=== PATIENT | male | born 1945 | race Native Hawaiian/Other Pacific Islander ===

== ENCOUNTER 2016-08-07 08:23 | Day surgery (SDC) | payer MEDICARE, OTHER ==
[2016-07-17 09:40] VITALS: BMI 22.3
[2016-08-07] MEDS ORDERED: ceFAZolin IV 2 gm in Dextrose 1 GM/50 ML BAG IVPB ONE (08:37)
[2016-08-07] MEDS ORDERED: Bupivacaine/Epi 0.25%-1:200,000 10 ml PF inj IJ ONE (08:37)
[2016-08-07] MEDS ORDERED: Lidocaine 1% Inj (20ml) ONE (08:37)
[2016-08-07] MEDS ORDERED: Midazolam 2 MG/2 ML VIAL ONE (08:56)
[2016-08-07] MEDS ORDERED: Propofol 10 mg/ml Inj (20 ML) ONE (08:57)
[2016-08-07] MEDS ORDERED: Lactated Ringer's 1,000 ML IV ONE ×4 (09:30→12:50)
[2016-08-07] MEDS ORDERED: Rocuronium 10 mg/ml (5 ml) ONE (10:26)
[2016-08-07] MEDS ORDERED: Oxycodone/Acetaminophen 5/325 mg Tab PO PRN (12:09)
--- NOTE | 2016-08-07 12:09 | PCM.SURG1 ---
Surgeon's Initial Post Op Note - Surgeon's Notes Surgeon: [facility] [employer] And Control Specialist: Tricia PGY2Isai Type of Anesthesia: General Endo, Local Pre-Operative Diagnosis: Right inguinal hernia repair Operative Findings: Indirect R inguinal hernia repair Post-Operative Diagnosis: same Operation Performed: Robotic assisted EMELYN hernia repair w. mesh Specimen/Specimens Removed: none Estimated Blood Loss: EBL {In ML}: 10 Blood Products Given: N/A Drains Used: No Drains Post-Op Condition: Good Date of Surgery/Procedure: 08/07/16 Time of Surgery/Procedure: 12:09
[2016-08-07] MEDS ORDERED: HYDROmorphone 0.5 mg/0.5 ml ISec IVP PRN (12:10)
[2016-08-07] MEDS ORDERED: HYDROmorphone 0.5 mg/0.5 ml ISec ONE (12:20)
[2016-08-07] MEDS ORDERED: HYDROmorphone 1 mg/ml ISec IVP PRN (12:30)
--- NOTE | 2016-08-07 15:04 | OP ---
PROCEDURE DATE: 08/07/2016 PREOPERATIVE DIAGNOSIS: Right inguinal hernia. POSTOPERATIVE DIAGNOSIS: Right indirect inguinal hernia. PROCEDURE DONE: Robotic right inguinal hernia repair with mesh. SURGEON: Humphrey Vegas MD YARDAGE CONTROL OPERATOR FORMING: PEDRO Zhang. Tg was present from the beginning to the end of the procedure. H elped in the prepping and draping, placement of the port, docking and undocking of the robot, and emily sure of the wound. ANESTHESIA: General endotracheal tube anesthesia. ESTIMATED BLOOD LOSS: Around 20 mL. DRAINS: None. PATHOLOGY: None. COMPLICATIONS: None. INTRAOPERATIVE FINDINGS: The patient had a large right indirect inguinal hernia. INTRAOPERATIVE STEPS: This is a 71-year-old male who was diagnosed with a right inguinal hernia and patient was consented for the robotic right inguinal hernia repair with the mesh. Brought to the OR, placed supine on the operating table. After induction of the anesthesia, the Fernandez catheter was deep kavon and abdomen was prepped and draped in a usual sterile fashion. Infraumbilical transverse 1.5 cm incision was made and the fascia was incised, robotic camera port was placed. Another three 8 mm por ts were placed: 2 on the left side, 1 on the right flank side, and the robot was brought in. Camera arm and arm 1 and arm 2 were docked. The peritoneal dissection was done midline up to the pubic sym physis, laterally up to the lateral abdominal wall, and the peritoneal sac appeared to be deep and co mplete, and the whole sac was reduced back into the peritoneal cavity and hemostasis was achieved. A fter that, the right anatomical mesh was implanted. After proper implantation of the mesh, the perit oneum was sutured with 2-0 Vicryl V-Loc suture. The peritoneal dissection was done medially up to pu bic symphysis and space of Retzius, laterally up to the lateral abdominal wall, superiorly up to the inferior epigastric artery and inferiorly up to the peritoneal reflection. After proper closure of t he peritoneum, all the ports were taken out under vision. Pneumo was deflated. Umbilical port site was closed in 2 layers, the fascia with 0 Vicryl interrupted sutures and skin with a 4-0 Monocryl. D ry sterile dressing was applied. The patient tolerated the procedure well. Count of instruments and gauze was correct. There was no apparent complication. The patient was extubated in the OR, sent t o the postanesthesia care unit in stable condition. Humphrey Vegas MD cc: [id number] TT: 08/07/2016 15:03:28 mn
[2016-08-07 15:10] VITALS: O2SAT 100
[2016-08-07 15:18] VITALS: BP 140/82; PULSE 67; RESP 19; TEMP 98
== END 2016-08-07 14:10 | disposition home or self-care (01) ==
LOC: C.SDS 08:23
PROVIDERS: ATTEND Surgery Surgical Critical Care
DX: K40.90 Unilateral inguinal hernia, without obstruction or gangrene, not specified as recurrent (principal)
CPT/HCPCS: 36415; 49505; 86850; 86900; C1781; J0690; J1170; J2250; J2704; J3010; J7120; S2900

== ENCOUNTER 2017-03-12 10:58 | Day surgery (SDC) | payer MEDICARE, OTHER ==
[2017-02-18 08:07] VITALS: BMI 20.7
[2017-03-12] MEDS ORDERED: ceFAZolin IV 1 gm in Dextrose 0 GM/0 ML BAG IVPB ONE (13:36)
[2017-03-12] MEDS ORDERED: Bupivacaine-Epi 0.25%-1:200,000 PF Inj ONE (13:36)
[2017-03-12] MEDS ORDERED: Sodium Chloride 0.9% 20 ML IV ONE (13:36)
[2017-03-12] MEDS ORDERED: Lidocaine 1% Inj (20ml) ONE (13:37)
[2017-03-12] MEDS ORDERED: HEPARIN-NS 5,000 UNITS/500 ML 5,000 UNIT/500 ML BAG IV ONE (13:38)
[2017-03-12] MEDS ORDERED: ceFAZolin IV 2 gm in Dextrose 2 GM/50 ML BAG IVPB ONE (13:49)
[2017-03-12] MEDS ORDERED: Lactated Ringer's 1,000 ML IV ONE (13:55)
[2017-03-12] MEDS ORDERED: Propofol 10 mg/ml Inj (20 ML) ONE (14:01)
[2017-03-12] MEDS ORDERED: Midazolam 2 MG/2 ML VIAL ONE (14:01)
--- NOTE | 2017-03-12 15:14 | PCM.SURG1 ---
Surgeon's Initial Post Op Note - Surgeon's Notes Surgeon: [facility] Cancer Program Director: Zulema PGY1 Type of Anesthesia: General LMA, Local Pre-Operative Diagnosis: Lymphoma Operative Findings: see report Post-Operative Diagnosis: Lymphoma Operation Performed: Right Internal Jugular Port-a-cath placement Specimen/Specimens Removed: none Estimated Blood Loss: EBL {In ML}: 20 Blood Products Given: N/A Drains Used: No Drains Post-Op Condition: Good Date of Surgery/Procedure: 03/12/17 Time of Surgery/Procedure: 15:13
[2017-03-12] MEDS ORDERED: Oxycodone/Acetaminophen 5/325 mg Tab PO PRN (15:17)
--- NOTE | 2017-03-12 15:29 | RAD ---
PROCEDURE: Intraoperative Fluoroscopy. HISTORY: PORT A CATH INSERTION. LYMPHOMA FINDINGS: Fluoroscopic assistance was provided. 8.9 seconds fluoroscopy time utilized during this procedure. Radiation dose = 0.74 mGy Please refer to the operative report for additional details
--- NOTE | 2017-03-12 15:52 | RAD ---
HISTORY: s/p port placement, RIJ COMPARISON: 07/17/2016 FINDINGS: The right-sided Port-A-Cath terminates in the distal SVC. LUNGS: The lungs are well inflated. There is subsegmental atelectasis in the right mid lung. No focal consolidation. There is mild pulmonary venous congestion. PLEURA: No significant pleural effusion identified, no pneumothorax apparent. CARDIOVASCULAR: Normal. OSSEOUS STRUCTURES: No significant abnormalities. VISUALIZED UPPER ABDOMEN: Normal. OTHER FINDINGS: None. IMPRESSION: Right Port-A-Cath terminates in the distal SVC. No acute findings.
[2017-03-12] MEDS ORDERED: Lidocaine 2% Jelly (Uro-Jet) ONE (16:49)
[2017-03-12 17:26] VITALS: RESP 16
[2017-03-12 17:38] VITALS: BP 116/64; PULSE 78; TEMP 97.9; O2SAT 100
--- NOTE | 2017-03-13 00:29 | OP ---
PROCEDURE DATE: 03/12/2017 PREOPERATIVE DIAGNOSIS: Lymphoma. POSTOPERATIVE DIAGNOSIS: Lymphoma. PROCEDURE DONE: 1. Right internal jugular Port-A-Cath insertion. 2. Intraoperative fluoroscopy. 3. Ultrasound-guided venous access. SURGEON: Humphrey Vegas MD DIRECTOR OF HOME HEALTH SERVICES: Kali Poole. ANESTHESIA: General anesthesia with LMA. ESTIMATED BLOOD LOSS: Around 20 mL. DRAIN: None. PATHOLOGY: None. COMPLICATIONS: None. INTRAOPERATIVE FINDINGS: The patient had a patent right IJ. DESCRIPTION OF PROCEDURE: On intraoperative steps, this 71-year-old male who was diagnosed with lymphoma and the patient was consented for Port-A-Cath insertion, brought to the OR, placed supine on an operating table. After induction of anesthesia, the neck and upper chest were prepped and draped in the usual sterile fashion. Under ultrasound guidance, right IJ venous access was done and guidewire was placed and intraoperative fluoroscopic conformation was done. Right infraclavicular incision was made. The pouch was created and the catheter was tunneled from the right infraclavicular pouch up to the right IJ insertion site and the catheter was placed into the dilator sheath and the catheter was connected to the port. Port was secured to the floor of the pouch and port was accessed and port was functioning without any blockage and wound was closed in 2 layers, subcutaneous with 2-0 Vicryl, skin with 4-0 Monocryl, and dry sterile dressing was applied. Patient tolerated the procedure well. Count of the instrument and gauze was correct. There was no apparent complication. Patient was extubated in OR and sent to the Postanesthesia Care Unit in stable condition. Humphrey Vegas MD
== END 2017-03-12 17:25 | disposition home or self-care (01) ==
LOC: C.SDS 10:58
PROVIDERS: ATTEND Surgery Surgical Critical Care
DX: C85.90 Non-Hodgkin lymphoma, unspecified, unspecified site (principal)
CPT/HCPCS: 36569; 71010; 77001; J1644; J2250; J2704; J3010; J7120